=== PATIENT | female | born 1995 | race Caucasian/White ===

== ENCOUNTER 2017-08-27 16:34 | Emergency (ER) | payer OTHER ==
[~2017-08-27] VITALS: Ht 172.7 cm; Wt 70.0 kg
[~2017-08-27 16:34] MED LIST: AMOXICILLIN500 MG OR; AUGMENTIN OR; LORTAB OR; MACROBID100 MG OR; PRENATABS OR
[2017-08-27] MEDS ORDERED: KEFLEX500 MG PO (17:10)
[2017-08-27] MEDS ORDERED: BENADRYL 50MG C50 MG PO (17:10)
[2017-08-27 17:28] VITALS: BP 122/73
== END 2017-08-27 17:28 | disposition home or self-care (01) | DRG 866 ==
LOC: ED 16:34
DX: B09 Unspecified viral infection characterized by skin and mucous membrane lesions (principal)

== ENCOUNTER 2018-01-25 12:57 | Emergency (ER) | payer SELFPAY ==
[~2018-01-25] VITALS: Ht 172.7 cm; Wt 72.0 kg
[~2018-01-25 12:57] MED LIST changes: +BENADRYL 50MG C50 MG PO; +KEFLEX500 MG PO
[2018-01-25 13:58] LABS: URINE BILIRUBIN - DIPSTICK NEGATIVE (NEGATIVE); URINE BLOOD DIPSTICK MODERATE (NEGATIVE); URINE COLOR YELLOW; URINE GLUCOSE - DIPSTICK NEGATIVE (NEGATIVE); URINE KETONE TRACE mg/dL (NEGATIVE); URINE LEUK ESTERASE NEGATIVE (NEGATIVE); URINE NITRITE - DIPSTICK NEGATIVE (Negative); URINE PROTEIN - DIPSTICK NEGATIVE (NEG-TRACE)
[2018-01-25 13:59] LABS: HEMATOCRIT 39.7 % (37.0-47.0); HEMOGLOBIN 13.3 g/dl (12.0-16.0); IMMATURE GRANULOCYTES 0.3 % (0.0-1.0); MEAN CORPUSCULAR HGB 31.8 pG CALC (26.0-32.0); MEAN CORPUSCULAR HGB CONC 33.5 g/L CALC (32.0-36.0); NEUT# 5.54 thou/uL (2.00-7.15); RED BLOOD COUNT 4.18 mill/uL (4.20-5.60); RED CELL DISTRI WIDTH 11.9 % (11.5-15.5)
[2018-01-25 13:59] LABS: URINE CLARITY SL CLOUDY; URINE EPITHELIAL CELLS FEW EPI/hpf (0-FEW)
[2018-01-25 14:15] LABS: BILIRUBIN, TOTAL 0.4 mg/dL (0.0-1.4); BUN 6 mg/dL (7-17); CARBON DIOXIDE 23 mmol/l (22-30); CHLORIDE 108 mmol/l (95-108); POTASSIUM 3.8 mmol/l (3.5-5.1); SGOT/AST 16 u/l (14-36); SGPT/ALT 19 u/l (9-52); TOTAL PROTEIN 6.5 g/dL (6.3-8.2)
[2018-01-25 14:20] LABS: ALBUMIN 4.1 g/dL (3.2-5.0); ALKALINE PHOSPHATASE 63 u/l (38-126); ANION GAP 15 (6-22 (CALC)); BUN/CREATININE RATIO 10 (12-20 (CALC)); CREATININE 0.6 mg/dL (0.5-1.0); GFR > 60 ML/MIN (>=60 (CALC)); GFR FOR AFR.AMER. > 60 ML/MIN (>=60 (CALC)); SODIUM 142 mmol/l (137-146)
[2018-01-25 14:31] LABS: BETA-HCG, QUANT(RESULT NUMBER) 12277 mIU/mL
[2018-01-25 15:59] VITALS: BP 120/68
== END 2018-01-25 16:10 | disposition home or self-care (01) | DRG 778 ==
LOC: ED 12:57
PROVIDERS: Emergency Medicine
DX: O20.0 Threatened abortion (principal); Z3A.01 Less than 8 weeks gestation of pregnancy

== ENCOUNTER 2018-01-30 18:55 | Emergency (ER) | payer SELFPAY ==
[~2018-01-30] VITALS: Ht 172.7 cm; Wt 68.4 kg
[2018-01-30 20:40] LABS: HEMATOCRIT 40.2 % (37.0-47.0); HEMOGLOBIN 13.9 g/dl (12.0-16.0); IMMATURE GRANULOCYTES 0.4 % (0.0-1.0); MEAN CELL VOLUME 92.8 fL CALC (80.0-100.0); MEAN CORPUSCULAR HGB 32.1 pG CALC (26.0-32.0); MEAN CORPUSCULAR HGB CONC 34.6 g/L CALC (32.0-36.0); NEUT# 6.06 thou/uL (2.00-7.15); RED BLOOD COUNT 4.33 mill/uL (4.20-5.60); RED CELL DISTRI WIDTH 11.9 % (11.5-15.5)
[2018-01-30 21:04] LABS: ALBUMIN 4.2 g/dL (3.2-5.0); ALKALINE PHOSPHATASE 69 u/l (38-126); ANION GAP 16 (6-22 (CALC)); BILIRUBIN, TOTAL 0.4 mg/dL (0.0-1.4); BUN 8 mg/dL (7-17); BUN/CREATININE RATIO 14 (12-20 (CALC)); CARBON DIOXIDE 21 mmol/l (22-30); CHLORIDE 108 mmol/l (95-108); CREATININE 0.6 mg/dL (0.5-1.0); GFR > 60 ML/MIN (>=60 (CALC)); GFR FOR AFR.AMER. > 60 ML/MIN (>=60 (CALC)); POTASSIUM 3.8 mmol/l (3.5-5.1); SGOT/AST 15 u/l (14-36); SGPT/ALT 24 u/l (9-52); SODIUM 140 mmol/l (137-146)
[2018-01-30 21:20] LABS: BETA-HCG, QUANT(RESULT NUMBER) 5792 mIU/mL
[2018-01-30 21:28] LABS: URINE BILIRUBIN - DIPSTICK NEGATIVE (NEGATIVE); URINE BLOOD DIPSTICK LARGE (NEGATIVE); URINE COLOR YELLOW; URINE GLUCOSE - DIPSTICK NEGATIVE (NEGATIVE); URINE KETONE TRACE mg/dL (NEGATIVE); URINE LEUK ESTERASE NEGATIVE (NEGATIVE); URINE NITRITE - DIPSTICK NEGATIVE (Negative); URINE PROTEIN - DIPSTICK TRACE mg/dL (NEG-TRACE); URINE SPECIFIC GRAVITY >=1.030
[2018-01-30 21:30] LABS: URINE CLARITY CLOUDY; URINE RBC TNTC RBC/hpf (0-5); URINE SQUAMOUS EPITHELIAL CELL FEW EPI/hpf (0-FEW)
[2018-01-30 22:20] VITALS: BP 118/51
== END 2018-01-30 22:20 | disposition home or self-care (01) | DRG 779 ==
LOC: ED 18:55
PROVIDERS: Emergency Medicine
DX: O03.9 Complete or unspecified spontaneous abortion without complication (principal)

== ENCOUNTER 2018-07-04 21:16 | Emergency (ER) | payer OTHER ==
[~2018-07-04] VITALS: Ht 172.7 cm; Wt 62.6 kg
[2018-07-04 22:54] LABS: HEMATOCRIT 34.4 % (37.0-47.0); IMMATURE GRANULOCYTES 0.5 % (0.0-5.0); MEAN CORPUSCULAR HGB 27.1 pG CALC (26.0-32.0); MEAN CORPUSCULAR HGB CONC 33.4 g/L CALC (32.0-36.0); NEUT# 2.61 thou/uL (2.00-7.15); RED BLOOD COUNT 4.25 mill/uL (4.20-5.60); RED CELL DISTRI WIDTH 20.2 % (11.5-15.5)
[2018-07-04 22:55] LABS: HEMOGLOBIN 11.5 g/dl (12.0-16.0); MEAN CELL VOLUME 80.9 fL CALC (80.0-100.0); URINE BILIRUBIN - DIPSTICK NEGATIVE (NEGATIVE); URINE BLOOD DIPSTICK NEGATIVE (NEGATIVE); URINE CLARITY TURBID; URINE COLOR YELLOW; URINE GLUCOSE - DIPSTICK NEGATIVE (NEGATIVE); URINE KETONE NEGATIVE (NEGATIVE); URINE LEUK ESTERASE SMALL (NEGATIVE); URINE NITRITE - DIPSTICK POSITIVE (Negative); URINE PH 6.5 (4.5-8.0); URINE PROTEIN - DIPSTICK NEGATIVE (NEG-TRACE); URINE SPECIFIC GRAVITY 1.015
[2018-07-04 22:59] LABS: URINE BACTERIA MANY hpf; URINE MUCUS MODERATE hpf (NONE-FEW); URINE RBC 0-2 RBC/hpf (0-5); URINE SQUAMOUS EPITHELIAL CELL MODERATE EPI/hpf (0-FEW)
[2018-07-04 23:00] LABS: URINE AMORPH SEDIMENT MANY hpf (NONE-FEW)
[2018-07-04 23:04] LABS: ALBUMIN 3.5 g/dL (3.2-5.0); ALKALINE PHOSPHATASE 63 u/l (38-126); AMYLASE 63 u/l (30-110); ANION GAP 13 (6-22 (CALC)); BILIRUBIN, TOTAL 0.2 mg/dL (0.0-1.4); BUN 8 mg/dL (7-17); BUN/CREATININE RATIO 20 (12-20 (CALC)); CARBON DIOXIDE 25 mmol/l (22-30); CHLORIDE 104 mmol/l (95-108); CREATININE 0.4 mg/dL (0.5-1.0); GFR > 60 ML/MIN (>=60 (CALC)); GFR FOR AFR.AMER. > 60 ML/MIN (>=60 (CALC)); LIPASE 41 u/l (23-300); POTASSIUM 3.6 mmol/l (3.5-5.1); SGOT/AST 18 u/l (14-36); SGPT/ALT 20 u/l (9-52); SODIUM 139 mmol/l (137-146); TOTAL PROTEIN 6.6 g/dL (6.3-8.2)
[2018-07-04 23:46] LABS: BETA-HCG, QUANT(RESULT NUMBER) 72770 mIU/mL
[2018-07-05 09:55] VITALS: BP 96/65
[2018-07-05] MEDS ORDERED: MACRODANTIN100 MG PO (10:50)
== END 2018-07-05 09:55 | disposition home or self-care (01) ==
LOC: ED 21:16
PROVIDERS: Emergency Medicine
DX: O23.40 Unspecified infection of urinary tract in pregnancy, unspecified trimester (principal); O99.330 Smoking (tobacco) complicating pregnancy, unspecified trimester; F17.210 Nicotine dependence, cigarettes, uncomplicated; B96.20 Unspecified Escherichia coli [E. coli] as the cause of diseases classified elsewhere; Z3A.00 Weeks of gestation of pregnancy not specified; R10.31 Right lower quadrant pain

== ENCOUNTER 2019-09-30 12:48 | Emergency (ER) | payer SELFPAY ==
[~2019-09-30] VITALS: Ht 175.3 cm; Wt 75.0 kg
[~2019-09-30 12:48] MED LIST changes: +MACRODANTIN100 MG PO
[2019-09-30] MEDS ORDERED: LORTAB 1010 MG PO (13:15)
[2019-09-30] MEDS ORDERED: AMOXICILLIN500 MG PO (13:15)
[2019-09-30 13:30] VITALS: BP 123/82
== END 2019-09-30 13:30 | disposition home or self-care (01) | DRG 159 ==
LOC: ED 12:48
DX: K04.7 Periapical abscess without sinus (principal); K03.81 Cracked tooth; F17.210 Nicotine dependence, cigarettes, uncomplicated

== ENCOUNTER 2020-02-12 16:15 | Emergency (ER) | payer OTHER ==
[~2020-02-12 16:15] MED LIST changes: +AMOXICILLIN500 MG PO; +LORTAB 1010 MG PO
[2020-02-12 17:25] VITALS: BP 120/75
== END 2020-02-12 17:25 | disposition home or self-care (01) ==
LOC: ED 16:15
DX: Z03.89 Encounter for observation for other suspected diseases and conditions ruled out (principal); F17.200 Nicotine dependence, unspecified, uncomplicated

== ENCOUNTER 2020-06-25 10:43 | Emergency (ER) | payer OTHER ==
[~2020-06-25] VITALS: Ht 175.3 cm; Wt 70.0 kg
[2020-06-25 11:30] LABS: HEMATOCRIT 32.9 % (37.0-47.0); IMMATURE GRANULOCYTES 0.4 % (0.0-5.0); MEAN CORPUSCULAR HGB 30.3 pG CALC (26.0-32.0); MEAN CORPUSCULAR HGB CONC 33.4 g/dL CAL (32.0-36.0); NEUT# 5.75 thou/uL (2.00-7.15); RED BLOOD COUNT 3.63 mill/uL (4.20-5.60); RED CELL DISTRI WIDTH 13.1 % (11.5-15.5)
[2020-06-25 11:32] LABS: MEAN CELL VOLUME 90.6 fL CALC (80.0-100.0)
[2020-06-25 11:57] LABS: URINE BILIRUBIN - DIPSTICK NEGATIVE (NEGATIVE); URINE BLOOD DIPSTICK NEGATIVE (NEGATIVE); URINE COLOR YELLOW; URINE GLUCOSE - DIPSTICK NEGATIVE (NEGATIVE); URINE KETONE NEGATIVE (NEGATIVE); URINE LEUK ESTERASE NEGATIVE (NEGATIVE); URINE NITRITE - DIPSTICK NEGATIVE (Negative); URINE PROTEIN - DIPSTICK NEGATIVE (NEG-TRACE); URINE SPECIFIC GRAVITY 1.015
[2020-06-25 12:01] LABS: ALBUMIN 3.3 g/dL (3.2-5.0); ALKALINE PHOSPHATASE 63 u/l (38-126); ANION GAP 9 (6-22 (CALC)); BILIRUBIN, TOTAL 0.2 mg/dL (0.0-1.4); BUN 5 mg/dL (7-17); BUN/CREATININE RATIO 16 (12-20 (CALC)); CARBON DIOXIDE 21 mmol/l (22-30); CHLORIDE 107 mmol/l (95-108); CREATININE 0.3 mg/dL (0.5-1.0); GFR > 60 ML/MIN (>=60 (CALC)); GFR FOR AFR.AMER. > 60 ML/MIN (>=60 (CALC)); LIPASE 34 u/l (23-300); POTASSIUM 3.4 mmol/l (3.5-5.1); SGOT/AST 15 u/l (14-36); SODIUM 134 mmol/l (137-146); TOTAL PROTEIN 6.2 g/dL (6.3-8.2)
[2020-06-25 13:10] VITALS: BP 110/62
[2020-06-25] MEDS ORDERED: PRE-NATAL PO (13:12)
== END 2020-06-25 13:10 | disposition home or self-care (01) ==
LOC: ED 10:43
DX: O26.899 Other specified pregnancy related conditions, unspecified trimester (principal); R10.31 Right lower quadrant pain; R10.32 Left lower quadrant pain; O99.330 Smoking (tobacco) complicating pregnancy, unspecified trimester; F17.210 Nicotine dependence, cigarettes, uncomplicated; Z3A.00 Weeks of gestation of pregnancy not specified

== ENCOUNTER 2020-07-22 00:55 | Emergency (ER) | payer OTHER ==
[~2020-07-22] VITALS: Ht 175.3 cm; Wt 70.0 kg
[~2020-07-22 00:55] MED LIST changes: +PRE-NATAL PO
[2020-07-22 01:47] LABS: URINE COLOR YELLOW; URINE GLUCOSE - DIPSTICK NEGATIVE (NEGATIVE); URINE KETONE >=80 mg/dL (NEGATIVE); URINE NITRITE - DIPSTICK NEGATIVE (Negative); URINE PROTEIN - DIPSTICK NEGATIVE (NEG-TRACE); URINE SPECIFIC GRAVITY >=1.030
[2020-07-22 01:54] LABS: URINE BILIRUBIN - DIPSTICK SMALL (NEGATIVE); URINE LEUK ESTERASE SMALL (NEGATIVE)
[2020-07-22 01:56] LABS: URINE BLOOD DIPSTICK NEGATIVE (NEGATIVE); URINE EPITHELIAL CELLS MANY EPI/hpf (0-FEW)
[2020-07-22 01:57] LABS: URINE BACTERIA MODERATE hpf; URINE MUCUS MODERATE hpf (NONE-FEW)
[2020-07-22 02:05] LABS: HEMATOCRIT 32.8 % (37.0-47.0); HEMOGLOBIN 11.1 g/dl (12.0-16.0); IMMATURE GRANULOCYTES 0.5 % (0.0-5.0); MEAN CELL VOLUME 90.9 fL CALC (80.0-100.0); MEAN CORPUSCULAR HGB 30.7 pG CALC (26.0-32.0); MEAN CORPUSCULAR HGB CONC 33.8 g/dL CAL (32.0-36.0); NEUT# 4.95 thou/uL (2.00-7.15); RED BLOOD COUNT 3.61 mill/uL (4.20-5.60); RED CELL DISTRI WIDTH 13.1 % (11.5-15.5)
[2020-07-22 02:13] LABS: ALBUMIN 3.5 g/dL (3.2-5.0); ALKALINE PHOSPHATASE 78 u/l (38-126); ANION GAP 9 (6-22 (CALC)); BUN 9 mg/dL (7-17); BUN/CREATININE RATIO 23 (12-20 (CALC)); CARBON DIOXIDE 23 mmol/l (22-30); CHLORIDE 106 mmol/l (95-108); CREATININE 0.4 mg/dL (0.5-1.0); GFR > 60 ML/MIN (>=60 (CALC)); GFR FOR AFR.AMER. > 60 ML/MIN (>=60 (CALC)); POTASSIUM 3.5 mmol/l (3.5-5.1); SGOT/AST 20 u/l (14-36); SODIUM 134 mmol/l (137-146); TOTAL PROTEIN 6.4 g/dL (6.3-8.2)
[2020-07-22 02:15] LABS: BILIRUBIN, TOTAL 0.3 mg/dL (0.0-1.4)
[2020-07-22] MEDS ORDERED: KEFLEX500 M1 PO ×2 (03:22)
[2020-07-22] MEDS ORDERED: MACROBID100 MG PO ×2 (03:22)
[2020-07-22 03:36] VITALS: BP 101/68
== END 2020-07-22 03:36 | disposition home or self-care (01) ==
LOC: ED 00:55
PROVIDERS: Emergency Medicine
DX: O23.42 Unspecified infection of urinary tract in pregnancy, second trimester (principal); O99.282 Endocrine, nutritional and metabolic diseases complicating pregnancy, second trimester; E86.0 Dehydration; O99.332 Smoking (tobacco) complicating pregnancy, second trimester; F17.200 Nicotine dependence, unspecified, uncomplicated; Z3A.23 23 weeks gestation of pregnancy; Z20.828 Contact with and (suspected) exposure to other viral communicable diseases

== ENCOUNTER 2020-07-28 12:42 | Emergency (ER) | payer OTHER ==
[~2020-07-28] VITALS: Ht 175.3 cm; Wt 60.0 kg
[~2020-07-28 12:42] MED LIST changes: +KEFLEX500 M1 PO; +MACROBID100 MG PO
[2020-07-28 13:35] LABS: HEMATOCRIT 32.8 % (37.0-47.0); HEMOGLOBIN 10.7 g/dl (12.0-16.0); IMMATURE GRANULOCYTES 0.4 % (0.0-5.0); MEAN CELL VOLUME 91.4 fL CALC (80.0-100.0); MEAN CORPUSCULAR HGB 29.8 pG CALC (26.0-32.0); MEAN CORPUSCULAR HGB CONC 32.6 g/dL CAL (32.0-36.0); NEUT# 3.33 thou/uL (2.00-7.15); RED BLOOD COUNT 3.59 mill/uL (4.20-5.60); RED CELL DISTRI WIDTH 13.2 % (11.5-15.5)
[2020-07-28 13:50] LABS: ALKALINE PHOSPHATASE 65 u/l (38-126); ANION GAP 8 (6-22 (CALC)); BILIRUBIN, TOTAL 0.3 mg/dL (0.0-1.4); BUN 6 mg/dL (7-17); BUN/CREATININE RATIO 17 (12-20 (CALC)); CARBON DIOXIDE 23 mmol/l (22-30); CHLORIDE 107 mmol/l (95-108); CREATININE 0.4 mg/dL (0.5-1.0); GFR > 60 ML/MIN (>=60 (CALC)); GFR FOR AFR.AMER. > 60 ML/MIN (>=60 (CALC)); MAGNESIUM 1.6 mg/dL (1.6-2.3); POTASSIUM 3.2 mmol/l (3.5-5.1); SGOT/AST 15 u/l (14-36); SODIUM 134 mmol/l (137-146); TOTAL PROTEIN 5.6 g/dL (6.3-8.2)
[2020-07-28 13:56] LABS: URINE BILIRUBIN - DIPSTICK NEGATIVE (NEGATIVE); URINE BLOOD DIPSTICK NEGATIVE (NEGATIVE); URINE COLOR YELLOW; URINE GLUCOSE - DIPSTICK NEGATIVE (NEGATIVE); URINE KETONE 40 mg/dL (NEGATIVE); URINE LEUK ESTERASE TRACE (NEGATIVE); URINE NITRITE - DIPSTICK NEGATIVE (Negative); URINE PROTEIN - DIPSTICK TRACE mg/dL (NEG-TRACE)
[2020-07-28 14:01] LABS: URINE AMORPH SEDIMENT MANY hpf (NONE-FEW); URINE RBC 0-2 RBC/hpf (0-5); URINE SQUAMOUS EPITHELIAL CELL FEW EPI/hpf (0-FEW)
[2020-07-28] MEDS ORDERED: AMOXICILLIN875 MG PO ×3 (14:27→14:40)
[2020-07-28 14:34] VITALS: BP 120/64
--- NOTE | 2020-07-30 11:19 | NUR ---
Notified patient of positive Covid results. Advised patient to quarantine until contacted by the [facility] with further instructions. Advised patient to return to ED with any urgent needs. Patient deniies difficulty breathing or SOB at this time. Patient asks if she should send her children to a sitter while she is quarantined. Advised her that her children could spread Covid to the sitter. Advised her to contact the [facility] for further information. I contacted Evonne at [facility] and advised her that patient had many questions about quarantine.
== END 2020-07-28 14:38 | disposition home or self-care (01) ==
LOC: ED 12:42
DX: U07.1 COVID-19 (principal); R43.8 Other disturbances of smell and taste; J02.0 Streptococcal pharyngitis; F17.210 Nicotine dependence, cigarettes, uncomplicated

== ENCOUNTER 2021-11-22 23:00 | Emergency (ER) | payer OTHER ==
[~2021-11-22] VITALS: Ht 175.3 cm; Wt 60.0 kg
[~2021-11-22 23:00] MED LIST changes: +AMOXICILLIN875 MG PO
[2021-11-23 00:26] LABS: HEMATOCRIT 37.8 % (37.0-47.0); HEMOGLOBIN 12.5 g/dl (12.0-16.0); IMMATURE GRANULOCYTES 0.4 % (0.0-5.0); MEAN CELL VOLUME 89.4 fL CALC (80.0-100.0); MEAN CORPUSCULAR HGB 29.6 pG CALC (26.0-32.0); MEAN CORPUSCULAR HGB CONC 33.1 g/dL CAL (32.0-36.0); NEUT# 3.9 thou/uL (2.00-7.15); RED BLOOD COUNT 4.23 mill/uL (4.20-5.60); RED CELL DISTRI WIDTH 12.3 % (11.5-15.5)
[2021-11-23 00:44] LABS: PROTHROMBIN TIME 10.1 SECONDS (9.0-12.5)
[2021-11-23 00:45] LABS: ALKALINE PHOSPHATASE 95 u/l (38-126); ANION GAP 8 (6-22 (CALC)); BILIRUBIN, TOTAL 0.4 mg/dL (0.0-1.4); BUN 11 mg/dL (7-17); BUN/CREATININE RATIO 19 (12-20 (CALC)); CARBON DIOXIDE 26 mmol/l (22-30); CHLORIDE 108 mmol/l (95-108); CREATININE 0.6 mg/dL (0.5-1.0); GFR > 60 ML/MIN (>=60 (CALC)); GFR FOR AFR.AMER. > 60 ML/MIN (>=60 (CALC)); POTASSIUM 3.6 mmol/l (3.5-5.1); SGOT/AST 16 u/l (14-36); SODIUM 138 mmol/l (137-146)
[2021-11-23 00:47] LABS: ALBUMIN 3.7 g/dL (3.2-5.0); TOTAL PROTEIN 6.8 g/dL (6.3-8.2)
[2021-11-23] MEDS ORDERED: ULTRAM50 M1 PO (02:46)
[2021-11-23 03:00] VITALS: BP 125/70
== END 2021-11-23 03:04 | disposition home or self-care (01) ==
LOC: ED 23:00
PROVIDERS: Emergency Medicine
DX: S50.12XA Contusion of left forearm, initial encounter (principal); F17.210 Nicotine dependence, cigarettes, uncomplicated; X58.XXXA Exposure to other specified factors, initial encounter
CPT/HCPCS: Q9967

== ENCOUNTER 2022-04-09 21:55 | Emergency (ER) | payer OTHER ==
[~2022-04-09] VITALS: Ht 175.3 cm; Wt 72.7 kg
[~2022-04-09 21:55] MED LIST changes: +ULTRAM50 M1 PO
[2022-04-09 23:04] VITALS: BP 108/70
[2022-04-09 23:30] VITALS: BP 124/79
[2022-04-09 23:49] LABS: HEMATOCRIT 42.6 % (37.0-47.0); IMMATURE GRANULOCYTES 0.2 % (0.0-5.0); MEAN CELL VOLUME 90.3 fL CALC (80.0-100.0); MEAN CORPUSCULAR HGB 30.9 pG CALC (26.0-32.0); MEAN CORPUSCULAR HGB CONC 34.3 g/dL CAL (32.0-36.0); NEUT# 8.86 thou/uL (2.00-7.15); RED BLOOD COUNT 4.72 mill/uL (4.20-5.60); RED CELL DISTRI WIDTH 12.1 % (11.5-15.5)
[2022-04-09 23:52] LABS: HEMOGLOBIN 14.6 g/dl (12.0-16.0)
[2022-04-10] VITALS: BP 110/71
[2022-04-10 00:29] LABS: ALBUMIN 4.4 g/dL (3.2-5.0); ALKALINE PHOSPHATASE 96 u/l (38-126); ANION GAP 15 (6-22 (CALC)); BILIRUBIN, TOTAL 0.5 mg/dL (0.0-1.4); BUN 9 mg/dL (7-17); BUN/CREATININE RATIO 16 (12-20 (CALC)); CARBON DIOXIDE 25 mmol/l (22-30); CHLORIDE 101 mmol/l (95-108); CREATININE 0.6 mg/dL (0.5-1.0); GFR > 60 ML/MIN (>=60 (CALC)); GFR FOR AFR.AMER. > 60 ML/MIN (>=60 (CALC)); POTASSIUM 3.9 mmol/l (3.5-5.1); SODIUM 137 mmol/l (137-146); TOTAL PROTEIN 8.1 g/dL (6.3-8.2)
[2022-04-10 00:30] VITALS: BP 122/80
[2022-04-10 00:34] LABS: SGOT/AST 44 u/l (14-36)
[2022-04-10] MEDS ORDERED: AMOXICILLIN500 MG PO (00:55)
[2022-04-10] MEDS ORDERED: CLARITIN10 M2 PO (00:55)
[2022-04-10 01:00] VITALS: BP 116/75
[2022-04-10 01:16] VITALS: BP 116/75
== END 2022-04-10 01:20 | disposition home or self-care (01) ==
LOC: ED 21:55
PROVIDERS: Emergency Medicine
DX: J02.9 Acute pharyngitis, unspecified (principal); I88.9 Nonspecific lymphadenitis, unspecified; F17.200 Nicotine dependence, unspecified, uncomplicated; Z20.822 Contact with and (suspected) exposure to COVID-19

== ENCOUNTER 2023-04-28 18:56 | Emergency (ER) | payer SELFPAY ==
[2023-04-28] VITALS (7 sets, daily range): BP systolic 119–148; BP diastolic 81–106
[~2023-04-28] VITALS: Ht 175.3 cm; Wt 79.5 kg
[~2023-04-28 18:56] MED LIST changes: +CLARITIN10 M2 PO
[2023-04-28] MEDS ORDERED: AMOX/K CLAV875 M1 PO (20:11)
== END 2023-04-28 20:43 | disposition home or self-care (01) | DRG 605 ==
LOC: ED 18:56
DX: S61.451A Open bite of right hand, initial encounter (principal); F17.290 Nicotine dependence, other tobacco product, uncomplicated; W54.0XXA Bitten by dog, initial encounter; Y93.89 Activity, other specified; Y92.009 Unspecified place in unspecified non-institutional (private) residence as the place of occurrence of the external cause

== ENCOUNTER 2024-11-23 10:25 | Emergency (ER) | payer SELFPAY ==
[~2024-11-23] VITALS: Ht 175.3 cm; Wt 70.0 kg
[~2024-11-23 10:25] MED LIST changes: +AMOX/K CLAV875 M1 PO
[2024-11-23 15:03] VITALS: BP 134/84
[2024-11-23] MEDS ORDERED: KETOROLAC TROMETHAMINE 15 MG/ML SDV IV ONE (15:10)
[2024-11-23 15:30] VITALS: BP 116/88
[2024-11-23 15:37] LABS: BASO% 0.6 % (0-3); EOS% 2.5 % (0-8); HEMATOCRIT 39.8 % (37.0-47.0); HEMOGLOBIN 13.5 g/dl (12.0-16.0); IMMATURE GRANULOCYTES 0.4 % (0.0-5.0); LYMPH% 29.3 % (15-41); MEAN CELL VOLUME 94.1 fL CALC (80.0-100.0); MEAN CORPUSCULAR HGB 31.9 pG CALC (26.0-32.0); MEAN CORPUSCULAR HGB CONC 33.9 g/dL CAL (32.0-36.0); NEUT# 3.9 thou/uL (2.00-7.15); NEUT% 58.2 % (42-76); RED BLOOD COUNT 4.23 mill/uL (4.20-5.60); RED CELL DISTRI WIDTH 12.3 % (11.5-15.5)
[2024-11-23 15:54] LABS: ALBUMIN 4.2 g/dL (3.2-5.0); ALKALINE PHOSPHATASE 60 u/l (38-126); ANION GAP 12 (6-22 (CALC)); BILIRUBIN, TOTAL 0.5 mg/dL (0.02-1.3); BUN 8 mg/dL (7-17); BUN/CREATININE RATIO 14 (12-20 (CALC)); CARBON DIOXIDE 25 mmol/l (22-30); CHLORIDE 106 mmol/l (95-108); CREATININE 0.6 mg/dL (0.5-1.0); ESTIMATED GFR 123 ML/MIN (>=90 (CALC)); POTASSIUM 3.7 mmol/l (3.5-5.1); SGOT/AST 25 u/l (14-36); SODIUM 139 mmol/l (137-146); TOTAL PROTEIN 7.1 g/dL (6.3-8.2)
[2024-11-23 16:00] VITALS: BP 123/78
[2024-11-23 16:30] VITALS: BP 118/73
[2024-11-23] MEDS ORDERED: NAPROXEN500 MG PO (17:25)
[2024-11-23 17:30] VITALS: BP 110/73
[2024-11-23 17:35] VITALS: BP 110/73
== END 2024-11-23 17:45 | disposition home or self-care (01) | DRG 313 ==
LOC: ED 10:25
PROVIDERS: Family Medicine
DX: R07.89 Other chest pain (principal); Z20.822 Contact with and (suspected) exposure to COVID-19
CPT/HCPCS: J1885